=== PATIENT | male | born 1945 | race Native Hawaiian/Other Pacific Islander ===

== ENCOUNTER 2016-07-02 10:09 | Outpatient (CLI) | payer OTHER ==
[~2016-07-02 10:09] MED LIST: ALOE VERA25 MG PO; ALPR0.5T24 PO; ARICEPT ODT10 MG PO; ASPIRIN81 M1 PO; ATIVAN2 M1 PO; BUSPIRONE HCL10 MG PO; BYSTOLIC5 MG PO; CARV3.12 PO; CELEXA20 MG PO; CO Q 1010 MG OR; E 400 BLEND400 UNIT OR; GABA300C2 PO; GINKGO BILOB120 M1 OR; LORTAB 10-325 M1 TAB PO; NIACIN500 M6 OR; OSTEO BI-FLX1 TAB OR; PLAVIX75 MG PO; PRAS10TA PO; SOMA350 MG PO; TRAZ100T OR; VITAMIN B-121000 MCG PO
[2016-07-02 10:35] LABS: PLATELET COUNT 231 K/uL (142-355)
[2016-07-02 11:32] LABS: POTASSIUM 4.3 mmol/L (3.6-5.2); SODIUM 134 mmol/L (136-145)
== END 2016-07-02 20:28 | disposition home or self-care (01) ==
LOC: LABW 10:09
PROVIDERS: Internal Medicine
DX: I10 Essential (primary) hypertension (principal); E78.4 Other hyperlipidemia; I25.10 Atherosclerotic heart disease of native coronary artery without angina pectoris; Z12.5 Encounter for screening for malignant neoplasm of prostate; F03.90 Unspecified dementia, unspecified severity, without behavioral disturbance, psychotic disturbance, mood disturbance, and anxiety; R53.81 Other malaise
CPT/HCPCS: 36415; 80053; 80061; 82607; 84443; 85027; 86140; G0103

== ENCOUNTER 2017-02-20 15:15 | Emergency (ER) | payer OTHER ==
[~2017-02-20] VITALS: Ht 167.6 cm; Wt 77.1 kg
[2017-02-20] MEDS ORDERED: DIVA250T2 PO (16:00)
[2017-02-20] MEDS ORDERED: NAMENDA10 MG OR (16:03)
[2017-02-20 16:24] LABS: PLATELET COUNT 145 K/uL (142-355)
[2017-02-20 16:31] LABS: POTASSIUM 3.8 mmol/L (3.6-5.2)
[2017-02-20 18:10] VITALS: BP 141/75; TEMP 98.1
== END 2017-02-20 18:10 | disposition home or self-care (01) ==
LOC: ED 15:15
DX: R07.89 Other chest pain (principal); S29.011A Strain of muscle and tendon of front wall of thorax, initial encounter
CPT/HCPCS: 36415; 80053; 82550; 84484; 85027; 93005; 99284

== ENCOUNTER 2017-03-27 11:21 | Outpatient (CLI) | payer OTHER ==
[~2017-03-27 11:21] MED LIST changes: +DIVA250T2 PO; +NAMENDA10 MG OR
== END 2017-03-27 12:30 | disposition home or self-care (01) ==
LOC: CT 11:21
DX: M48.061 Spinal stenosis, lumbar region without neurogenic claudication (principal)

== ENCOUNTER 2017-06-09 07:34 | Outpatient (CLI) | payer OTHER | END 2017-06-09 07:38 | disposition home or self-care (01) | LOC: AMB 07:34 | DX: Z04.1 Encounter for examination and observation following transport accident (principal) ==

== ENCOUNTER 2017-06-09 12:01 | Emergency (ER) | payer OTHER ==
[~2017-06-09] VITALS: Ht 170.2 cm; Wt 75.3 kg
[2017-06-09 13:40] LABS: PLATELET COUNT 188 K/uL (142-355)
[2017-06-09 13:43] LABS: SODIUM 137 mmol/L (136-145)
[2017-06-09 13:50] LABS: PARTIAL THROMBOPLASTIN TIME 27.6 SECONDS (24.5-33.6)
[2017-06-09 15:10] VITALS: BP 133/71; TEMP 97.7
== END 2017-06-09 15:10 | disposition home or self-care (01) ==
LOC: ED 12:01
PROVIDERS: Emergency Medicine
DX: S20.211A Contusion of right front wall of thorax, initial encounter (principal); M62.838 Other muscle spasm; S27.1XXA Traumatic hemothorax, initial encounter; V43.62XA Car passenger injured in collision with other type car in traffic accident, initial encounter; Y92.89 Other specified places as the place of occurrence of the external cause
CPT/HCPCS: 36415; 80053; 80164; 82550; 84484; 85027; 85610; 85730; 93005; 99283; Q9963

== ENCOUNTER 2019-05-28 14:32 | Outpatient (CLI) | payer OTHER | END 2019-05-28 14:40 | disposition short-term general hospital (02) | LOC: AMB 14:32 | DX: R41.82 Altered mental status, unspecified (principal); R94.31 Abnormal electrocardiogram [ECG] [EKG] | CPT/HCPCS: A0425; A0427 ==

== ENCOUNTER 2019-05-28 14:45 | Emergency (ER) | payer OTHER ==
[~2019-05-28] VITALS: Ht 175.3 cm; Wt 79.4 kg
[2019-05-28 15:07] VITALS: TEMP 99
[2019-05-28 15:32] LABS: PLATELET COUNT 162 K/uL (142-355)
[2019-05-28 15:40] LABS: POTASSIUM 4.6 mmol/L (3.6-5.2); SODIUM 138 mmol/L (136-145)
[2019-05-28 15:45] LABS: PARTIAL THROMBOPLASTIN TIME 26.4 SECONDS (24.5-33.6)
[2019-05-28 17:30] VITALS: BP 126/74
== END 2019-05-28 18:02 | disposition short-term general hospital (02) ==
LOC: ED 14:45
PROVIDERS: Family Medicine
PROC: 0T9B70Z Drainage of Bladder with Drainage Device, Via Natural or Artificial Opening (ICD-10-PCS; principal; 2019-05-28)
DX: G45.9 Transient cerebral ischemic attack, unspecified (principal); R41.82 Altered mental status, unspecified; G30.9 Alzheimer's disease, unspecified; F02.81 Dementia in other diseases classified elsewhere, unspecified severity, with behavioral disturbance
CPT/HCPCS: 51702; 80053; 81000; 84484; 85027; 85610; 85730; 87502; 87651; 93005; 99283

== ENCOUNTER 2019-05-28 18:06 | Outpatient (CLI) | payer OTHER | END 2019-05-28 19:21 | disposition short-term general hospital (02) | LOC: AMB 18:06 | DX: R41.82 Altered mental status, unspecified (principal); R53.1 Weakness | CPT/HCPCS: A0425; A0427 ==

== ENCOUNTER 2019-06-04 13:17 | Outpatient (CLI) | payer OTHER | END 2019-06-04 13:49 | disposition short-term general hospital (02) | LOC: AMB 13:17 | DX: R41.82 Altered mental status, unspecified (principal); R53.1 Weakness | CPT/HCPCS: A0425; A0427 ==

== ENCOUNTER 2019-08-05 12:51 | Outpatient (CLI) | payer OTHER ==
[2019-08-05 13:32] LABS: PLATELET COUNT 200 K/uL (142-355)
== END 2019-08-05 22:46 | disposition home or self-care (01) ==
LOC: LABW 12:51
PROVIDERS: Internal Medicine
DX: E78.2 Mixed hyperlipidemia (principal); M62.81 Muscle weakness (generalized); E55.9 Vitamin D deficiency, unspecified; E53.8 Deficiency of other specified B group vitamins; Z51.81 Encounter for therapeutic drug level monitoring; R41.81 Age-related cognitive decline; R41.844 Frontal lobe and executive function deficit
CPT/HCPCS: 36415; 80048; 80076; 80164; 81000; 82306; 82550; 82607; 82747; 84443; 85027

== ENCOUNTER 2022-08-22 17:03 | Inpatient (IN) | payer OTHER | END 2022-08-24 12:23 | disposition still patient (30) | LOC: PAVC 17:03 | PROVIDERS: ADMIT Internal Medicine Endocrinology, Diabetes & Metabolism; ATTEND Internal Medicine Endocrinology, Diabetes & Metabolism ==

== ENCOUNTER 2022-08-23 09:31 | Outpatient (CLI) | payer OTHER | END 2022-08-23 20:15 | disposition home or self-care (01) | LOC: LAB 09:31 | PROVIDERS: ATTEND Internal Medicine Endocrinology, Diabetes & Metabolism | DX: G30.9 Alzheimer's disease, unspecified (principal) | CPT/HCPCS: 87081 ==

== ENCOUNTER 2022-08-24 12:40 | Inpatient (IN) | payer OTHER | END 2022-09-23 16:45 | disposition still patient (30) | LOC: PAVC 12:40 | PROVIDERS: ADMIT Internal Medicine Endocrinology, Diabetes & Metabolism; ATTEND Internal Medicine Endocrinology, Diabetes & Metabolism ==

== ENCOUNTER 2022-08-26 07:48 | Outpatient (CLI) | payer OTHER ==
[2022-08-26 08:05] LABS: PLATELET COUNT 179 K/uL (142-355)
== END 2022-08-26 18:54 | disposition home or self-care (01) ==
LOC: LAB 07:48
PROVIDERS: ATTEND Internal Medicine Endocrinology, Diabetes & Metabolism
DX: G30.9 Alzheimer's disease, unspecified (principal); E55.9 Vitamin D deficiency, unspecified; E78.49 Other hyperlipidemia
CPT/HCPCS: 36415; 80053; 80061; 85027

== ENCOUNTER 2022-08-29 07:27 | Outpatient (CLI) | payer OTHER ==
[2022-08-29 07:52] LABS: PLATELET COUNT 177 K/uL (142-355)
[2022-08-29 08:51] LABS: POTASSIUM 4.2 mmol/L (3.6-5.2)
== END 2022-08-29 18:58 | disposition home or self-care (01) ==
LOC: LAB 07:27
PROVIDERS: ATTEND Internal Medicine Endocrinology, Diabetes & Metabolism
DX: I25.10 Atherosclerotic heart disease of native coronary artery without angina pectoris (principal); E78.49 Other hyperlipidemia
CPT/HCPCS: 80053; 80164; 81000; 82542; 85027

== ENCOUNTER 2022-09-23 16:51 | Inpatient (IN) | payer OTHER | END 2022-10-24 12:39 | disposition still patient (30) | LOC: PAVC 16:51 | PROVIDERS: ADMIT Internal Medicine Endocrinology, Diabetes & Metabolism; ATTEND Internal Medicine Endocrinology, Diabetes & Metabolism ==

== ENCOUNTER 2022-10-24 12:43 | Inpatient (IN) | payer OTHER | END 2022-11-23 17:44 | disposition still patient (30) | LOC: PAVC 12:43 | PROVIDERS: ADMIT Internal Medicine Endocrinology, Diabetes & Metabolism; ATTEND Internal Medicine Endocrinology, Diabetes & Metabolism ==